=== PATIENT | female | born 1960 | race Caucasian/White ===

== ENCOUNTER → 2023-05-11 13:02 | Outpatient (REF) | payer OTHER, SELFPAY | LOC: HWRAD 13:02 | PROVIDERS: ATTENDING PHYSICIAN Obstetrics & Gynecology | DX: N95.0 Postmenopausal bleeding (principal); Z12.31 Encounter for screening mammogram for malignant neoplasm of breast | CPT/HCPCS: 76830; 76856; 77063; 77067 ==

== ENCOUNTER → 2023-05-23 13:25 | Outpatient (REF) | payer OTHER, SELFPAY ==
[2023-05-23 14:02] VITALS: BP 151/88; BP_SYST 120
[2023-05-23 14:40] VITALS: BP 143/91
[2023-05-23 15:13] LABS: Body Fluid Mononuclear 87.2 %; Body Fluid Polymorphonuclear 12.8 %; Body Fluid WBC 1333 /CUMM
[2023-05-23 15:15] LABS: Body Fluid Second Tech LD
== END ==
LOC: RADI 13:25
PROVIDERS: ATTENDING PHYSICIAN Obstetrics & Gynecology
DX: C80.1 Malignant (primary) neoplasm, unspecified (principal); R18.0 Malignant ascites
CPT/HCPCS: 88305; 49083; 87015; 87070; 87205; 88112; 88341; 88342; 88360; 89051

== ENCOUNTER → 2023-06-01 08:46 | Outpatient (REF) | payer OTHER, SELFPAY ==
[2023-06-01 09:06] VITALS: BP 179/96; BP_SYST 121
[2023-06-01 10:11] VITALS: BP 167/88
[2023-06-01 10:37] LABS: Body Fluid WBC 1348 /CUMM
[2023-06-01 10:38] LABS: Body Fluid Mononuclear 91.8 %; Body Fluid Polymorphonuclear 8.2 %
[2023-06-01 10:39] LABS: Body Fluid Second Tech AMA
== END ==
LOC: RADI 08:46
PROVIDERS: ATTENDING PHYSICIAN Obstetrics & Gynecology
DX: C80.1 Malignant (primary) neoplasm, unspecified (principal); R18.0 Malignant ascites
CPT/HCPCS: 88305; 49083; 88112; 89051

== ENCOUNTER → 2023-06-07 08:24 | Outpatient (REF) | payer OTHER, SELFPAY ==
[2023-06-07 08:33] VITALS: BP 136/93; BP_SYST 114
[2023-06-07 09:48] VITALS: BP 147/78
[2023-06-07 12:01] LABS: Body Fluid Mononuclear 95.6 %; Body Fluid Polymorphonuclear 4.4 %; Body Fluid WBC 1011 /CUMM
[2023-06-07 12:15] LABS: Body Fluid Second Tech SS
== END ==
LOC: RADI 08:24
PROVIDERS: ATTENDING PHYSICIAN Nurse Practitioner Adult Health
DX: R18.8 Other ascites (principal)
CPT/HCPCS: 49083; 89051

== ENCOUNTER → 2023-06-14 09:29 | Outpatient (REF) | payer OTHER, SELFPAY ==
[2023-06-14 10:05] VITALS: BP 176/94; BP_SYST 103
[2023-06-14 10:41] VITALS: BP 159/77
[2023-06-14 11:18] LABS: Body Fluid Mononuclear 96.5 %; Body Fluid Polymorphonuclear 3.5 %; Body Fluid WBC 587 /CUMM
[2023-06-14 11:20] LABS: Body Fluid Second Tech EM
== END ==
LOC: RADI 09:29
PROVIDERS: ATTENDING PHYSICIAN Nurse Practitioner Adult Health
DX: C80.1 Malignant (primary) neoplasm, unspecified (principal); R18.0 Malignant ascites
CPT/HCPCS: 49083; 89051

== ENCOUNTER 2023-12-22 19:47 | Emergency (ER) | payer BC, SELFPAY ==
[2023-12-22 19:55] VITALS: BP 174/100
[2023-12-22 20:00] VITALS: BP 172/90
--- NOTE | 2023-12-22 21:57 | ED.GENMED ---
History of Present Illness
General
Chief Complaint: Skin Problem
Source: patient and family
Exam Limitations: none
Time Seen by Provider: 12/22/23 20:55
Nursing documentation reviewed up to this point in time: agreed with
History of Present Illness
History of Present Illness:
63-year-old female past medical history of hypertension asthma cervical cancer with metastasis currently being treated at [facility] presenting to the emergency department today with concerns of swelling to the left neck that occurred
upon awakening from a nap a few hours prior to arrival. Denies any trouble swallowing or breathing denies pain but has never seen the swelling to her neck similar to this in the past.
Past History
Past History
ED Past Medical History: None
ED Past Surgical History: None
Social History
Tobacco: Non-smoker
Alcohol: None
Personal:
Living: with family
Review of Systems
Review of Systems
Allergies reviewed?: Yes
All Other Systems: ROS reviewed and negative except as documented in HPI and ROS
Phy Exam
Physical Exam
Physical Exam:
GENERAL: Alert , in no apparent distress
EYE: pupils equal and reactive
NECK: Swelling to the left lateral lower neck no redness or warmth no significant tenderness good range of motion of the neck. No bruit. Supple, no significant adenopathy.
ENT: o/p clr, mmm.
CARDIAC: Regular rate and rhythm .
LUNGS: Clear breath sounds bilaterally, no acute respiratory distress, no wheezes/rales/rhonchi
ABDOMEN: Soft, without focal tenderness, no r/g, no cvat
NEUROLOGICAL: Alert and oriented, no focal neuro deficits
SKIN: Warm and dry, skin intact.
MUSCULOSKELETAL: No edema, well perfused.
PSYCH: Normal and appropriate interaction.
Course
Orders/Labs/Results
Orders:
Orders
12/22/23 21:28
CT Neck With Iv Contrast Urgent
Comment:
Reason For Exam: left neck swelling today
12/22/23 22:00
BMP [Basic Metabolic Panel] Urgent
CBC/With Diff [Complete Blood Count/With Diff] Urgent
12/22/23 22:57
Ibuprofen [Motrin] 600 mg .ROUTE .STK-MED ONE
12/22/23 23:04
Ibuprofen [Motrin] 600 mg PO NOW STA
Abnormal Lab Results
12/22/23
22:00
RBC 2.90 L 10^6/uL
(4.20-5.40)
Hgb 7.9 L g/dL
(12.0-16.0)
Hct 24.1 L %
(37.0-47.0)
MCHC 32.8 L g/dL
(33.0-37.0)
RDW 16.7 H %
(11.5-14.5)
Absolute Lymphs (auto) 1.0 L 10^3/uL
(1.2-3.4)
Immature Gran % 0.7 H %
(0-0.5)
Lymphocytes % 17.9 L %
(20.5-51.1)
Glucose 126 H mg/dl
(70-99)
12/22/23 22:00
12/22/23 22:00
Vital Signs
Initial and Last Documented VS:
Initial Vital Signs
Temp Pulse Resp BP Pulse Ox
98.4 F 113 22 174/100 99
12/22/23 19:55 12/22/23 19:55 12/22/23 19:55 12/22/23 19:55 12/22/23 19:55
Last Documented Vital Signs
Temp Pulse Resp BP Pulse Ox
98.4 F 100 19 172/90 98
12/22/23 19:55 12/22/23 20:00 12/22/23 22:00 12/22/23 20:00 12/22/23 20:00
MDM/Problems Addressed
MDM/Problems Addressed:
63-year-old female presenting to the emergency department today with concerns of swelling to the left lower lateral neck. No redness or warmth no signs of infection no significant tenderness palpation. This seemed to occur after taking a nap. CT
scan obtained showing extensive lymphadenopathy throughout the left neck with areas of likely central necrosis which is concerning for underlying malignancy. This extends to the left axilla and the superior mediastinum mild surrounding stranding.
Malignancy most likely according to radiology. Airway is patent no drainable fluid collections. Patient here very stable in no distress appears to be stable for outpatient follow-up with her oncologist who she sees in the next few days. Strict
return precautions were discussed. Patient demonstrated understanding and agreement with the plan.
*Critical Care Note
Total Time (30-74mins, 75-104mins- exclusive of procedures): Not Applicable
ED Attending Note
-
Portions of this chart may have been created with voice recognition software.� Occasional wrong word or��sound alike� substitutions may have occurred due to the inherent limitations of voice recognition software.
Discharge Plan
Departure
Patient Disposition: Home (Routine Discharge)
Date of Disposition: 12/22/23
Time of Disposition: 23:39
Patient with high blood pressure during this ER visit?: No
Condition: Good
Covid-19: Not Applicable
Discharge Problem:
Lymph node enlargement
Instructions: Lymph Node Biopsy, Lymphadenitis (DC)
Prescriptions:
No Action
tramadol 50 mg Tablet
50 mg PO BID PRN (Reason: pain)
Referrals:
Shay Motley MD [Family Provider] -
Activity Restrictions/Additional Instructions:
You came to the emergency department today with concerns of swelling to the left side of your neck. You had significant lymph node enlargement to that area which explains your symptoms. This will need further assessment with your oncologist as
soon as possible. Return to the emergency department for any worsening, new or concerning symptoms.
Interventions
Interventions:
*Risk Screen - Suicide Last Done: 12/22/23 19:53
*General Assessment Last Done: 12/22/23 21:31
*Neglect/Abuse Screening Last Done: 12/22/23 19:55
ED- Fall Risk Assessment Last Done: 12/22/23 21:25
*ED COVID-19 Vaccine History Last Done: 12/22/23 21:31
ED-Skin Assessment Last Done: 12/22/23 21:25
Discharge Date and Time
Print Language: SERBIAN
[2023-12-22 22:21] LABS: % Basophils 0.3 % (0-2); % Eosinophils 0.5 % (0-6); % Immature Granulocytes 0.7 % (0-0.5); % Lymphocytes 17.9 % (20.5-51.1); % Monocytes 9.3 % (1.7-9.3); % Neutrophils 71.3 % (42.2-75.2); Absolute Monocytes 0.5 10^3/uL (0.1-0.6); Absolute Neutrophils 4.1 10^3/uL (1.4-6.5); Hematocrit 24.1 % (37.0-47.0); Hemoglobin 7.9 g/dL (12.0-16.0); Mean Corp Hgb Conc. 32.8 g/dL (33.0-37.0); Mean Corpuscular Hgb 27.2 pg (27.0-31.0); Mean Corpuscular Volume 83.1 fL (81.0-99.0); Mean Platelet Volume 8.7 fL (7.4-10.4); Nucleated Red Blood Cells % 0 %; Platelet Count 255 10^3/uL (130-400); Red Cell Dist. Width 16.7 % (11.5-14.5); White Blood Cell Count 5.8 10^3/uL (4.8-10.8)
[2023-12-22 22:38] LABS: Blood Urea Nitrogen 15 mg/dl (7-17); Calcium 9.9 mg/dl (8.4-10.2); Carbon Dioxide 28 mmol/L (22-30); Chloride 103 mmol/L (98-107); Glucose 126 mg/dl (70-99); Sodium 141 mmol/L (135-145); eGFR > 60.00
[2023-12-22] MEDS: MOTRIN 600 MG PO (23:05)
[2023-12-23] VITALS: BP 169/91
== END 2023-12-23 00:11 | disposition home or self-care (01) ==
LOC: EMR 19:47
PROVIDERS: Physician Assistant; EMERGENCY PHYSICIAN Emergency Medicine; FAMILY PHYSICIAN Family Medicine; REFERRING PHYSICIAN Obstetrics & Gynecology
DX: R59.0 Localized enlarged lymph nodes (principal); C53.9 Malignant neoplasm of cervix uteri, unspecified; C79.9 Secondary malignant neoplasm of unspecified site; I10 Essential (primary) hypertension; J45.909 Unspecified asthma, uncomplicated; F41.9 Anxiety disorder, unspecified
CPT/HCPCS: 99284; 70491; 80048; 85025; Q9967

== ENCOUNTER → 2024-04-18 12:31 | Outpatient (REF) | payer BC, SELFPAY ==
[2024-04-18 12:55] VITALS: BP 138/74; BP_SYST 109
[2024-04-18 13:33] VITALS: BP 133/62; BP_SYST 101
[2024-04-18 13:47] VITALS: BP 133/62
[2024-04-18 14:32] LABS: Body Fluid Mononuclear 88.1 %; Body Fluid Polymorphonuclear 11.9 %; Body Fluid WBC 528 /CUMM
[2024-04-18 15:06] LABS: Body Fluid Second Tech DW
== END ==
LOC: RADI 12:31
PROVIDERS: ATTENDING PHYSICIAN Nurse Practitioner Adult Health; FAMILY PHYSICIAN Family Medicine
DX: C80.1 Malignant (primary) neoplasm, unspecified (principal); R18.0 Malignant ascites
CPT/HCPCS: 49083; 89051

== ENCOUNTER → 2024-04-25 12:50 | Outpatient (REF) | payer BC, SELFPAY ==
[2024-04-25 13:30] VITALS: BP 128/64; BP_SYST 111
[2024-04-25 14:10] VITALS: BP 135/58
[2024-04-25 18:12] LABS: Body Fluid WBC 312 /CUMM
[2024-04-25 18:13] LABS: Body Fluid Mononuclear 73.1 %; Body Fluid Polymorphonuclear 26.9 %
[2024-04-25 18:15] LABS: Body Fluid Second Tech HB
== END ==
LOC: RADI 12:50
PROVIDERS: ATTENDING PHYSICIAN Nurse Practitioner Adult Health; FAMILY PHYSICIAN Family Medicine
DX: R18.8 Other ascites (principal)
CPT/HCPCS: 49083; 89051

== ENCOUNTER 2024-05-04 20:04 | Observation (INO) | payer BC, SELFPAY ==
[2024-05-04] VITALS (10 sets, daily range): BP systolic 114–141; BP diastolic 49–83; BMI 32.7
--- NOTE | 2024-05-04 13:43 | ED.GENMED ---
History of Present Illness
General
Chief Complaint: Dizziness
Source: patient
Exam Limitations: none
Time Seen by Provider: 05/04/24 13:25
Nursing documentation reviewed up to this point in time: agreed with
History of Present Illness
History of Present Illness:
64-year-old female is medical history of asthma hypertension ascites presenting to the emergency department today with concerns of feeling room spinning dizziness intermittently over the past 2 days. Seem to occur after getting a blood transfusion
2 days ago when her hemoglobin is 6.6. She had the transfusion at [facility]. She is being treated there for metastatic uterine cancer. She claims his symptoms are fatigable when sitting still seem to be worse only with movement.
Denies history of similar symptoms. Denies any chest pain shortness of breath numbness weakness otherwise. No bleeding.
Past History
Past History
ED Past Medical History: None
ED Past Surgical History: None
Social History
Tobacco: Non-smoker
Alcohol: None
Personal:
Living: with family
Review of Systems
Review of Systems
Allergies reviewed?: Yes
All Other Systems: ROS reviewed and negative except as documented in HPI and ROS
Phy Exam
Physical Exam
Physical Exam:
GENERAL: Alert , in no apparent distress
EYE: pupils equal and reactive
NECK: Supple, no significant adenopathy.
ENT: o/p clr, mmm.
CARDIAC: Regular rate and rhythm .
LUNGS: Clear breath sounds bilaterally, no acute respiratory distress, no wheezes/rales/rhonchi
ABDOMEN: Soft, without focal tenderness, no r/g, no cvat
NEUROLOGICAL: Alert and oriented, no focal neuro deficits 5-5 upper and lower extremity strength normal sensation when palpating bilaterally normal finger-nose and spox-ks-kymt.
SKIN: Warm and dry, skin intact.
MUSCULOSKELETAL: No edema, well perfused.
PSYCH: Normal and appropriate interaction.
Course
Orders/Labs/Results
Orders:
Orders
05/04/24 13:37
0.9% Sodium Chloride 250 ml [Nss] 250 ml IV BOLUS
Meclizine [Antivert] 25 mg PO NOW STA
05/04/24 13:50
Type And Crossmatch [Type+Screen] Urgent
Complete Blood Count/With Diff Urgent
Comprehensive Metabolic Panel Urgent
Manual Differential Urgent
05/04/24 13:52
Pt Eval And Treat Urgent
Treatment: Veestibular
Activity Level: Ambulate
05/04/24 14:37
ABO2 Urgent
BBK Wristband Number:
Associate notified that ABO2 has been ordered: [id number]
Date: 05/04/24
Time: 14:37
Mounter ID: [id number]
05/04/24 16:32
Meclizine [Antivert] 25 mg PO NOW STA
Abnormal Lab Results
05/04/24
13:50
RBC 3.66 L 10^6/uL
(4.20-5.40)
Hgb 9.1 L g/dL
(12.0-16.0)
Hct 30.1 L %
(37.0-47.0)
MCH 24.9 L pg
(27.0-31.0)
MCHC 30.2 L g/dL
(33.0-37.0)
RDW 17.7 H %
(11.5-14.5)
Plt Count 648 H 10^3/uL
(130-400)
Lymphocytes (Manual) 7 L %
(20-51)
Monocytes (Manual) 24 H %
(2-9)
Sodium 132 L mmol/L
(135-145)
Chloride 96 L mmol/L
(98-107)
Glucose 122 H mg/dl
(70-99)
Total Protein 5.6 L g/dl
(6.3-8.2)
Albumin 3.1 L g/dl
(3.5-5.0)
05/04/24 13:50
05/04/24 13:50
Vital Signs
Initial and Last Documented VS:
Initial Vital Signs
Temp Pulse Resp BP Pulse Ox
98.2 F 117 22 122/76 95
05/04/24 11:57 05/04/24 11:57 05/04/24 11:57 05/04/24 11:57 05/04/24 11:57
Last Documented Vital Signs
Temp Pulse Resp BP Pulse Ox
98.2 F 102 23 122/49 98
05/04/24 11:57 05/04/24 18:30 05/04/24 18:30 05/04/24 18:00 05/04/24 18:30
MDM/Problems Addressed
MDM/Problems Addressed:
64-year-old female presenting to the emergency department today with concerns of room spinning dizziness over the past 2 days after getting a blood transfusion. On arrival here she is mildly tachycardic but improving at rest. Otherwise signs are
normal. Normal neurologic evaluation. PT assessment consistent with peripheral vertigo. Labs without emergent findings explaining symptoms. Was given meclizine with still significant symptoms. Given a second dose of meclizine without
improvement. Plan to admit due to significant ongoing symptoms. Patient refusing head CT at this time.
*Critical Care Note
Total Time (30-74mins, 75-104mins- exclusive of procedures): Not Applicable
ED Attending Note
-
Portions of this chart may have been created with voice recognition software.� Occasional wrong word or��sound alike� substitutions may have occurred due to the inherent limitations of voice recognition software.
Discharge Plan
Departure
Patient Disposition: Admit
Date of Disposition: 05/04/24
Time of Disposition: 19:00
Admit to: Telemetry
Admit to doctor: Veldanda
Presentation/result/management discussed w/ accepting MD/DO: Hospitalist
Patient with high blood pressure during this ER visit?: No
Condition: Good
Covid-19: Not Applicable
Discharge Problem:
Vertigo
Prescriptions:
No Action
multivitamin Tablet
1 tab PO DAILY
ascorbic acid (vitamin C) [Vitamin C] 1,000 mg Tablet
1 g PO DAILY
vitamin A 3,000 mcg (10,000 unit) Capsule
3,000 mcg PO DAILY
oxycodone 5 mg Tablet
5 mg PO Q4H PRN (Reason: pain)
Rx Instructions:
sometimes has to take 10mg
cholecalciferol (vitamin D3) [Vitamin D3] 50 mcg (2,000 unit) Tablet
50 mcg PO DAILY
Referrals:
Stacey Linda MD [Family Provider] -
Interventions
Interventions:
*Risk Screen - Suicide Last Done: 05/04/24 11:57
*General Assessment Last Done: 05/04/24 11:57
*Neglect/Abuse Screening Last Done: 05/04/24 11:57
*ED COVID-19 Vaccine History Last Done: 05/04/24 11:57
ED- Neurological Assessment Last Done: 05/04/24 13:29
ED- Cardiac Assessment Last Done: 05/04/24 13:29
ED Swallowing Screen Last Done: 05/04/24 13:32
Discharge Date and Time
Print Language: FRISIAN
[2024-05-04] MEDS: ANTIVERT PO (13:48)
[2024-05-04] MEDS: NSS 250 IV (13:48)
[2024-05-04 14:38] LABS: Hematocrit 30.1 % (37.0-47.0); Hemoglobin 9.1 g/dL (12.0-16.0); Mean Corp Hgb Conc. 30.2 g/dL (33.0-37.0); Mean Corpuscular Hgb 24.9 pg (27.0-31.0); Mean Corpuscular Volume 82.2 fL (81.0-99.0); Red Blood Cell Count 3.66 10^6/uL (4.20-5.40); Red Cell Dist. Width 17.7 % (11.5-14.5); White Blood Cell Count 6.2 10^3/uL (4.8-10.8)
[2024-05-04 14:45] LABS: ALT (SGPT) < 10 U/L (0-35); AST (SGOT) 32 U/L (14-36); Albumin 3.1 g/dl (3.5-5.0); Alkaline Phosphatase 124 U/L (38-126); Blood Urea Nitrogen 17 mg/dl (7-17); Calcium 9.9 mg/dl (8.4-10.2); Carbon Dioxide 30 mmol/L (22-30); Chloride 96 mmol/L (98-107); Glucose 122 mg/dl (70-99); Potassium 4.4 mmol/L (3.5-5.1); Sodium 132 mmol/L (135-145); Total Bilirubin 0.7 mg/dl (0.2-1.3); Total Protein 5.6 g/dl (6.3-8.2); eGFR > 60.00
[2024-05-04] MEDS: ANTIVERT 25 MG PO ×3 (15:23→23:48)
[2024-05-04 15:25] LABS: Mean Platelet Volume 8.8 fL (7.4-10.4); Platelet Count 648 10^3/uL (130-400)
[2024-05-04 15:26] LABS: Absolute Neutrophils -Man Diff 4.2 10^3/uL (1.4-6.5); Anisocytosis 2+; Band Neutrophils 1 % (0-3); Hypochromasia 1+; Lymphocytes 7 % (20-51); Macrocytosis 2+; Monocytes 24 % (2-9); Normal RBC Morphology No; Platelets Checked Yes; Segmented Neutrophils 68 % (42-75)
[2024-05-04 15:27] LABS: Stomatocytes 1+; Total Cells Counted 100
--- NOTE | 2024-05-04 18:37 | HPS.HSE ---
Family Physician
-
Family Physician: Stacey Linda
Chief Complaint
-
dizziness
History of Present Illness
Patient is a 64-year-old female with past medical history significant for hypertension, asthma, metastatic uterine cancer and ascites who presented to [facility] ED for evaluation of dizziness. Patient reports the dizziness started on
Sunday post blood transfusion at [place]. She reports that this is not her first transfusion and is needed r/t anemia and no bleeding. Patient diagnosed with metastatic uterine cancer last year and has required transfusion post chemo at times. She
had 5 rounds of chemo, then had a hysterectomy, partial bowel resection then followed by 3 more rounds of chemo. At follow up CT scan metastatic disease was discovered and she had immunotherapy. Continued metastatic disease was found and patient
started a new chemo Doxil monthly at the beginning of April. She is do for next chemo 05/15/2024. Patient explains that dizziness comes when she moves position and feels like room is spinning, it generally resolves after a few minutes of rest.
She has also noticed some increased weakness with dizziness that her helps her with movement. Patient denies any recent illness, sick contact, fevers, chills, cough, shortness of breath, chest pain, nausea, vomiting, diarrhea or urinary
symptoms.
Medical History
Past Medical History
Past Medical History: Reports Other
Additional Past Medical History:
benign hypertension
asthma
ascites
metastatic uterine cancer
Past Surgical History: Reports Other
Additional Past Surgical History:
paracentesis
cervical LEAP
D&C
hysterectomy (09/2023)
bowel resection (09/2023)
Social History
Tobacco: Non-smoker
Drug: None
Personal:
Living: With Family
Family History
Family History: Not pertinent
Allergies / Home Medications
Allergies reflects when Allergies were last updated in [facility].
Home Medications with original date entered in [facility]
Allergy/Medication List:
Allergies
Allergy/AdvReac Type Severity Reaction Status Date / Time
bees Allergy Unknown Uncoded 04/18/24 13:48
Home Medications
ascorbic acid (vitamin C) 1,000 mg tablet (Vitamin C) 1 g PO DAILY 04/25/24
cholecalciferol (vitamin D3) 50 mcg (2,000 unit) tablet (Vitamin D3) 50 mcg PO DAILY 04/25/24
multivitamin 1 tab PO DAILY 04/25/24
oxycodone 5 mg tablet 10 mg PO Q4HPRN PRN severe pain 04/25/24
vitamin A 3,000 mcg (10,000 unit) capsule 3,000 mcg PO DAILY 04/25/24
sennosides 8.6 mg-docusate sodium 50 mg tablet (Senna Plus) 1 tab-cap PO DAILY 05/04/24
Review of Systems
-
History Source: Patient
Constitutional: Reports No Symptoms
EENT: Reports No Symptoms
Respiratory: Reports No Symptoms
Cardiac: Reports No Symptoms
Abdomen/GI: Reports No Symptoms
: Reports No Symptoms
Musculoskeletal: Reports No Symptoms
Skin: Reports No Symptoms
Neurological: Reports Dizzy and Weakness
Endocrine: Reports No Symptoms
Hematologic/Lymphatic: Reports No Symptoms
Psych: Reports No Symptoms
Physical Exam
Vital Signs
Vital Signs
Temp Pulse Resp BP Pulse Ox
98.2 F 102 23 122/49 98
05/04/24 11:57 05/04/24 18:30 05/04/24 18:30 05/04/24 18:00 05/04/24 18:30
Physical Exam
General: Well Developed, Well Nourished, No Apparent Distress, Comfortable and Conversant
HEENT: NormoCephalic, Moist mucous membranes, Atraumatic, PERRLA, [place] Conjunctivae, Nose Appears Normal and Ears Appear Normal
Respiratory: Clear and Non Labored Respirations
Cardiac: S1/S2, Regular Rhythm and Tachycardia; No Murmur, Rub or Gallop
GI: Soft, Non Tender, Non Distended, Normal Bowel Sounds and Ostomy; No Organomegaly
Rectal: Deferred by Provider
Genito-urinary: Deferred by me
Musculoskeletal: No Clubbing, No Cyanosis and No Edema
Skin: Warm and IV/Catheter Site; No Rash
Neuro: Awake, Alert, AO x 3, Nonfocal/grossly intact and Other (nystagmus present )
Psych: Calm and Intact Judgment/Insight
Laboratory Results
-
05/04/24 13:50
05/04/24 13:50
Laboratory Results
Total Bilirubin 0.7 mg/dl (0.2-1.3) 05/04/24 13:50
AST 32 U/L (14-36) 05/04/24 13:50
ALT < 10 U/L (0-35) 05/04/24 13:50
Alkaline Phosphatase 124 U/L (38-126) 05/04/24 13:50
Data Reviewed
-
Medical Tests (Nuc Med, Echo, EKG etc): Report Reviewed by me (EKG: NORMAL SINUS RHYTHM NORMAL ECG)
Lab Data: Labs Reviewed by me (Hgb 9.1, Hct 30.1, Plt 648)
Impression/Plan
-
IMPRESSION/PLAN:
#dizziness
EKG: NORMAL SINUS RHYTHM
Patient refusing all brain imaging and will follow up with [place]
- admit to telemetry
- meclizine PRN
- Vestibular therapy
- orthostatic VS
#benign hypertension
patient reports no longer requiring medications, hypertension was result of previous chemo
- monitor
#asthma
#ascites
s/p paracentesis last one 04/25/2024
#metastatic uterine cancer
treatment at [facility]
metastatic disease to lymph nodes, liver, lung and chest
Code status: DNR
DVT prophylaxis: SCDs
--- NOTE | 2024-05-04 19:36 | W.PN.UPDATE ---
Update Note
Progress Note Update
This is an addendum to the H&P written by Maria Guadalupe Quintanilla on 05/04/2024. Patient seen and examined independently with TRAUMA SURGEON
64-year-old female past medical history of metastatic uterine cancer with metastases to liver, lungs, lymph nodes, chest, probable colon involvement status post colostomy, on doxorubicin, chemotherapy induced anemia periodically receives
transfusions, ascites undergoes periodic paracentesis, hypertension, asthma, presenting with vertigo starting 2 days ago only occurring primarily with head movements. No other neurological symptoms.
On examination she has nystagmus with rightward gaze. No neurological deficits.
Likely peripheral vertigo secondary to BPPV. IV fluids were given for check orthostatic vital signs. Given her history would like to check CT head and MRI brain to evaluate for brain metastases however patient refusing and does not want to know if
she has cancer in her brain. She will follow-up with [facility] Dewitt.
Check orthostatic vital signs as needed meclizine. Vestibular therapy.
[2024-05-04] MEDS: ROXICODONE 10 MG PO (21:15)
--- NOTE | 2024-05-04 22:00 | PTCARENOTE ---
New admit to 2S from ER. A&Ox3, in NAD, dizziness upon position changes but able to transfer from stretcher to room bed without incident, VSS, and hooked up to engine monitor. Questions/concerns addressed upon assessment, bed locked and in lowest
position, side rails in place, call light within reach.
[2024-05-05] MEDS: ROXICODONE 10 MG PO ×4 (01:17→15:11)
[2024-05-05 05:59] LABS: Blood Urea Nitrogen 15 mg/dl (7-17); Calcium 9.9 mg/dl (8.4-10.2); Carbon Dioxide 30 mmol/L (22-30); Chloride 97 mmol/L (98-107); Estimated Creatinine Clearance 65 ml/min; Glucose 109 mg/dl (70-99); Potassium 4.3 mmol/L (3.5-5.1); Sodium 132 mmol/L (135-145); eGFR > 60.00
[2024-05-05 06:21] LABS: Hematocrit 25.7 % (37.0-47.0); Hemoglobin 7.8 g/dL (12.0-16.0); Mean Corp Hgb Conc. 30.4 g/dL (33.0-37.0); Mean Corpuscular Hgb 24.6 pg (27.0-31.0); Mean Corpuscular Volume 81.1 fL (81.0-99.0); Mean Platelet Volume 8.5 fL (7.4-10.4); Platelet Count 523 10^3/uL (130-400); Red Blood Cell Count 3.17 10^6/uL (4.20-5.40); Red Cell Dist. Width 17.8 % (11.5-14.5); White Blood Cell Count 5.2 10^3/uL (4.8-10.8)
[2024-05-05 07:00] VITALS: BP 134/74
[2024-05-05 08:15] LABS: Absolute Neutrophils -Man Diff 3.7 10^3/uL (1.4-6.5); Band Neutrophils 0 % (0-3); Lymphocytes 7 % (20-51); Monocytes 17 % (2-9); Myelocytes 3 % (-); Normal RBC Morphology No; Platelets Checked Yes; Segmented Neutrophils 73 % (42-75)
[2024-05-05 08:16] LABS: Anisocytosis 1+; Hypochromasia 1+; Polychromasia Slight; Total Cells Counted 100
[2024-05-05] MEDS: VITAMIN D3 (cholecalciferol) 50 MCG PO (08:19)
[2024-05-05] MEDS: SENOKOT-S 1 TABLET PO (08:19)
[2024-05-05] MEDS: VITAMIN C 500 MG PO (08:19)
[2024-05-05] MEDS: THERAGRAN 1 TABLET PO (08:19)
[2024-05-05 08:32] VITALS: BP 144/79; BP 148/75; BP 149/68; PULSE 107; PULSE 111; PULSE 122
--- NOTE | 2024-05-05 11:00 | CM ---
Addendum entered by Vicky Powell 05/05/24 14:54:
Pt seen by PT today - recs - Home PT vs outpatient Vestibular therapy
Spoke with pt - prefers home PT
TT sent to [facility] Liaison
Plan - home with [facility]
Original Note:
Adm dx - Vertigo. PMH - hypertension, asthma, metastatic uterine cancer with mets
Met with pt at bedside
Pt reports she lives in a 3 story town home with her and 2 sons (17, 21 yo); 12 steps to enter, 24 steps to 2nd fl
Independent with ADL's, requires some assit around home, ambulates with single point cane
DME - single point cane, shower chair, rolling walker, wheel chair, commode
SNF - denies past hx
HH - [facility] in past
Has ride at discharge
PCP - Stacey Linda
Pharm - [facility]
Currently receiving treatment for cancer at [place]
PT - recs outpatient vestibular therapy
Given obs letter
Plan - anticipate home with outpatient vestibular therapy
[2024-05-05 11:05] VITALS: BP 130/59
--- NOTE | 2024-05-05 12:19 | W.DCSUMMARY ---
Discharge Summary
Discharge Data
Date of Admission: 05/04/24
Date of Discharge: 05/05/24
-
Pending Results: No
Hospital Course
Ms. Estevez is a 64-year-old female with a medical history of metastatic uterine cancer (follows at [facility]), ascites, bowel resection (left-sided colostomy in place), hypertension, anemia (requiring occasional transfusions), and asthma who
presented with dizziness associated with positional changes. She was diagnosed with vertigo and admitted for symptomatic management. She was only able to partially tolerate vestibular therapy. She declined further brain imaging at this time
saying she preferred to follow-up with her oncologist at [facility] for this and did not want to find out now if she had brain metastases. She was given IV fluids here and treated symptomatically with meclizine and Zofran as needed. She remained
hemodynamically stable. Her hemoglobin dropped from 9.1 at time of admission to 7.8 on repeat labs the next morning after fluid resuscitation. She is anemic at baseline requiring occasional transfusions. She does not appear to be actively
bleeding at this time. This drop in hemoglobin is most likely a dilutional effect after fluid resuscitation. She will of course require ongoing monitoring in the outpatient setting. Her other labs were generally unremarkable other than a mild
hyponatremia that was stable throughout this admission. She will be discharged to home with instructions to continue meclizine and Zofran as needed for her dizziness and nausea. She will need close follow-up with her primary oncologist at [place] for which she reports having a scheduled appointment next week. She should follow-up in the outpatient setting for ongoing vestibular therapy.
Gen-AAOx3, NAD
HEENT-NC, AT, anicteric, clear oral mm
Neck-supple
CV-reg, no M, +S1/S2
Lungs-clear B/L
Abd-soft, NT, ND, left-sided colostomy in place with very little output
Musculoskeletal-no edema, no deformity
Skin-warm and dry
Neuro-grossly non-focal
Psych-calm, cooperative
Discharge Plan
-
Patient Disposition: Home (Routine Discharge)
Discharge Diagnosis/Procedures: Vertigo
Diet: No restrictions
Activity: As tolerated
Activity Restrictions/Additional Instructions:
Ms. Estevez is a 64-year-old female with a medical history of metastatic uterine cancer (follows at [facility]), ascites, bowel resection (left-sided colostomy in place), hypertension, anemia (requiring occasional transfusions), and asthma who
presented with dizziness associated with positional changes. She was diagnosed with vertigo and admitted for symptomatic management. She was only able to partially tolerate vestibular therapy. She declined further brain imaging at this time
saying she preferred to follow-up with her oncologist at [facility] for this and did not want to find out now if she had brain metastases. She was given IV fluids here and treated symptomatically with meclizine and Zofran as needed. She remained
hemodynamically stable. Her hemoglobin dropped from 9.1 at time of admission to 7.8 on repeat labs the next morning after fluid resuscitation. She is anemic at baseline requiring occasional transfusions. She does not appear to be actively
bleeding at this time. This drop in hemoglobin is most likely a dilutional effect after fluid resuscitation. She will of course require ongoing monitoring in the outpatient setting. Her other labs were generally unremarkable other than a mild
hyponatremia that was stable throughout this admission. She will be discharged to home with instructions to continue meclizine and Zofran as needed for her dizziness and nausea. She will need close follow-up with her primary oncologist at [place] for which she reports having a scheduled appointment next week.
Referrals:
Stacey Linda MD [Family Provider] -
Prescriptions:
Continued
multivitamin Tablet
1 tab PO DAILY
ascorbic acid (vitamin C) [Vitamin C] 1,000 mg Tablet
1 g PO DAILY
vitamin A 3,000 mcg (10,000 unit) Capsule
3,000 mcg PO DAILY
oxycodone 5 mg Tablet
10 mg PO Q4HPRN PRN (Reason: severe pain)
cholecalciferol (vitamin D3) [Vitamin D3] 50 mcg (2,000 unit) Tablet
50 mcg PO DAILY
sennosides-docusate sodium [Senna Plus] 8.6-50 mg Tablet
1 tab-cap PO DAILY
meclizine 25 mg Tablet
25 mg Q8HPRN PRN (Reason: vertigo)
doxorubicin
MONTHLY
Discharge Orders:
Discharge Patient (As Directed); Ordered 05/05/24
Ordered By: Juan Young
Discharge Date and Time
Print Language: SINHALA
[2024-05-05 14:13] VITALS: BP 114/65; PULSE 109; O2SAT 94
--- NOTE | 2024-05-05 15:05 | VNURNOTE ---
Home Health Liaison met with patient at bedside to discuss [facility] nurse/therapy, visits, schedule and homebound status. Patient is agreeable and understands that visits at home will be 2-3 x per week to assess and teach medical management. She is
familiar with [facility]. Patient is aware that [facility] will contact them for start of care in 1-2 days after discharge from . During meeting, patient appeared very uncomfortable, restless sitting up in chair. Assisted patient in using call
tabatha for the nurse. [facility] referral completed in [facility].
--- NOTE | 2024-05-05 15:27 | VATNOTE ---
right subq port deaccessed per protocol. blood return noted prior to.
== END 2024-05-05 16:15 | disposition home or self-care (01) ==
LOC: 2 SOUTH 20:04
PROVIDERS: Nurse Practitioner Family; Physician Assistant; ADMITTING PHYSICIAN Hospitalist; ATTENDING PHYSICIAN Internal Medicine; EMERGENCY PHYSICIAN Emergency Medicine; FAMILY PHYSICIAN Obstetrics & Gynecology
DX: R42 Dizziness and giddiness (principal); C55 Malignant neoplasm of uterus, part unspecified; R18.8 Other ascites; R00.0 Tachycardia, unspecified; H55.00 Unspecified nystagmus; E87.1 Hypo-osmolality and hyponatremia; I10 Essential (primary) hypertension; D64.81 Anemia due to antineoplastic chemotherapy; J45.909 Unspecified asthma, uncomplicated; C78.7 Secondary malignant neoplasm of liver and intrahepatic bile duct; C77.9 Secondary and unspecified malignant neoplasm of lymph node, unspecified; C78.00 Secondary malignant neoplasm of unspecified lung; Z92.21 Personal history of antineoplastic chemotherapy; Z90.710 Acquired absence of both cervix and uterus; Z90.49 Acquired absence of other specified parts of digestive tract; Z91.030 Bee allergy status; Z66 Do not resuscitate; Z93.3 Colostomy status
CPT/HCPCS: 80048; 80053; 85025; 86850; 86900; 86901; 96360; 97112; 97116; 97530; 99285; G0378

== ENCOUNTER 2024-05-07 06:47 | Outpatient (RCR) | payer BC, SELFPAY | END 2024-05-07 23:59 | disposition home or self-care (01) | LOC: RPT 06:47 | PROVIDERS: ATTENDING PHYSICIAN Family Medicine | DX: H81.11 Benign paroxysmal vertigo, right ear (principal); Z73.6 Limitation of activities due to disability | CPT/HCPCS: 97112; 97161 ==